=== PATIENT | male | born 1985 | race Hispanic/Latino ===

== ENCOUNTER 2019-08-16 11:45 | Emergency (ER) | payer OTHER ==
[2019-08-16 18:29] LABS: SARS-CoV-2 MS2 Positive; SARS-CoV-2 N Gene Positive; SARS-CoV-2 S Gene Positive; SARS-CoV-2 orf1ab Positive
== END 2019-08-16 12:49 | disposition home or self-care (01) ==
LOC: ERS 11:45
DX: U07.1 COVID-19 (principal); R50.9 Fever, unspecified; F17.210 Nicotine dependence, cigarettes, uncomplicated
CPT/HCPCS: 87635; 99283; U0003

== ENCOUNTER 2019-08-18 20:07 | Emergency (ER) | payer SELFPAY ==
[2019-08-18 20:45] LABS: #Lymphocytes 0.8 thou/uL (1.20-3.40); #Monocytes 0.6 thou/uL (0.11-0.59); #Neutrophils 4.3 thou/uL (1.40-6.50); %Basophils 0.3 % (0.0-1.0); %Eosinophils 0.2 % (0.0-10.0); %Lymphocytes 14.6 % (21.0-51.0); %Monocytes 10.4 % (0.0-10.0); %Neutrophils 74.5 % (42.0-75.0); Hemoglobin 13.7 g/dL (14.0-18.0); Mean Corpuscular HGB CONC 34.1 g/dL (32.0-36.0); Mean Corpuscular Hemoglobin 30.8 pg (27.0-31.0); Mean Corpuscular Volume 90.2 fL (78.0-98.0); Mean Platelet Volume 7.5 fL (7.4-10.4); Platelet Count 182 thou/uL (130-400); RBC Distribution Width 11.1 % (11.5-14.5); Red Blood Cell (RBC) Count 4.44 mill/uL (4.70-6.10); White Blood Cell (WBC) Count 5.8 thou/uL (4.8-10.8)
--- NOTE | 2019-08-18 20:49 | RAD ---
Chest one view HISTORY: COVID 19. Fever. FINDINGS: No comparison. Cardiac silhouette and pulmonary vasculature are unremarkable. Ill-defined patchy areas of subtle parenchymal opacity project over the periphery of the left lung an d at the right posterior lung base. No evidence of pneumothorax. brick and block mason leads overlie the chest. IMPRESSION : Multifocal bilateral viral pneumonitis.
[2019-08-18] MEDS ORDERED: Ibuprofen 200 MG TAB ONE (20:53)
[2019-08-18 21:05] LABS: ALT (SGPT) 56 U/L (8-55); AST (SGOT) 47 U/L (5-34); Albumin 4.4 g/dL (3.5-5.0); Alkaline Phosphatase 91 U/L (40-110); Anion Gap 15 mmol/L (10-20); BUN (Urea Nitrogen) 9 mg/dL (8.9-20.6); Bilirubin, Total 0.9 mg/dL (0.2-1.2); Calc. Creatinine Clearance 0 mL/min (70-130); Calcium 9.1 mg/dL (7.8-10.44); Carbon Dioxide 25 mmol/L (22-29); Chloride 100 mmol/L (98-107); Estimated GFR-MDRD Greater than 90; Globulin 3.4 g/dL (2.4-3.5); Glucose 111 mg/dL (70-105); Protein, Total 7.8 g/dL (6.0-8.3); Sodium 136 mmol/L (136-145)
[2019-08-18] MEDS ORDERED: Acetaminophen 500 MG TAB ONE (21:47)
--- NOTE | 2019-08-26 11:53 | EKG ---
Test Reason : Blood Pressure : / mmHG Vent. Rate : 102 BPM Atrial Rate : 102 BPM P-R Int : 138 ms QRS Dur : 090 ms QT Int : 324 ms P-R-T Axes : 018 023 003 degrees QTc Int : 422 ms Sinus tachycardia Otherwise normal ECG Confirmed by JOCELINE SAPP ([id number]), slot editor COURTNEY FERNANDEZ ([id number] on 08/26/2019 11:52:37 AM Referred By: Confirmed By:JOCELINE Gage
== END 2019-08-18 23:38 | disposition home or self-care (01) ==
LOC: ERS 20:07
DX: J18.9 Pneumonia, unspecified organism (principal); F17.210 Nicotine dependence, cigarettes, uncomplicated
CPT/HCPCS: 71045; 80053; 85025; 93005; 96360; 96361